=== PATIENT | male | born 1990 | race Caucasian/White ===

== ENCOUNTER 2022-02-10 19:19 | Emergency (ER) | payer BC ==
[~2022-02-10] VITALS: Ht 177.8 cm; Wt 79.4 kg
--- NOTE | 2022-02-10 19:19 | NUR ---
REPORTED TO REGARDING PT STATUS.
[2022-02-10] MEDS ORDERED: FAMOTIDINE (20 MG) 20 MG TABLET PO ONE (20:00)
[2022-02-10] MEDS ORDERED: predniSONE 20 MG TABLET PO ONE (20:00)
[2022-02-10] MEDS ORDERED: predniSONE 20 MG TABLET ONE (20:05)
[2022-02-10] MEDS ORDERED: FAMOTIDINE (20 MG) 20 MG TABLET ONE (20:06)
--- NOTE | 2022-02-10 20:10 | NUR ---
PT UNABLE TO KEEP MEDICATION DOWN, 1 EPISODE OF EMESIS AFTER TAKING MEDICATION. MD MADE AWARE
--- NOTE | 2022-02-10 20:24 | NUR ---
IV LINE ESTABLISHED, LAC 20G
[2022-02-10] MEDS ORDERED: ONDANSETRON HCL/PF 4 MG/2 ML VIAL ONE (20:29)
[2022-02-10] MEDS ORDERED: methylPREDNISolone SOD SUCC 125 MG/2ML VIAL ONE (20:29)
[2022-02-10] MEDS ORDERED: FAMOTIDINE/PF INJ 20 MG/2 ML VIAL IV ONE (20:29)
[2022-02-10] MEDS: FAMOTIDINE/PF INJ 20 MG/2 ML VIAL IV ONE (20:35)
[2022-02-10] MEDS: methylPREDNISolone SOD SUCC 125 MG/2ML VIAL IV ONE (20:35)
[2022-02-10] MEDS: ONDANSETRON HCL/PF - ER 4 MG/2 ML VIAL IV ONE ×2 (20:35→21:13)
[2022-02-10] MEDS ORDERED: PRED20TA PO (22:43)
[2022-02-10] MEDS ORDERED: FAMO-131 PO (22:43)
[2022-02-10] MEDS ORDERED: ONDA4TAB11 PO (22:45)
--- NOTE | 2022-02-10 22:50 | NUR ---
IV removed. Catheter intact and site benign. Pressure and 4x4 applied to site. No bleeding noted.
--- NOTE | 2022-02-10 22:52 | NUR ---
Patient discharged to home in stable condition. Written and verbal after care instructions given. Patient verbalizes understanding of instruction.
[2022-02-10 22:53] VITALS: BP 125/70
== END 2022-02-10 22:53 | disposition home or self-care (01) ==
LOC: ER 19:22
DX: T78.1XXA Other adverse food reactions, not elsewhere classified, initial encounter (principal); R20.2 Paresthesia of skin; J45.909 Unspecified asthma, uncomplicated; Z91.018 Allergy to other foods; Z79.899 Other long term (current) drug therapy; X58.XXXA Exposure to other specified factors, initial encounter
CPT/HCPCS: 96374; 96375; 99284; J2405; J2930; J3490; J7512